=== PATIENT | female | born 1985 | race Caucasian/White ===

== ENCOUNTER 2022-12-21 17:30 | Emergency (ER) | payer OTHER ==
[~2022-12-21] VITALS: Ht 172.7 cm; Wt 90.3 kg
[2022-12-21 17:34] VITALS: BP 145/89
--- NOTE | 2022-12-21 17:41 | NUR ---
PT REPORTED THAT SHE NEEDED TO LEAVE RIGHT AWAY TO ASSIST HER DAUGHTER AND SHE WILL GO TO ER BY HER HOUSE. PATIENT LEFT WITHOUT BEING SEEN BY DR. SANTACRUZ. NO FURTHER CARE PROVIDED FOR PATIENT.
== END 2022-12-21 17:41 | disposition left against medical advice (07) ==
LOC: MED 17:30
DX: H92.01 Otalgia, right ear (principal); R29.810 Facial weakness; Z53.21 Procedure and treatment not carried out due to patient leaving prior to being seen by health care provider